=== PATIENT | male | born 1995 ===

== ENCOUNTER 2018-03-07 17:03 | Emergency (ER) | payer SELFPAY ==
--- NOTE | 2018-03-07 17:09 | UC ---
Skin Complaint HPI - HPI Summary HPI Summary: 22 yo male presents with left eyebrow laceration. He is slovak speaking only and is accompanied by a friend who is translating for him. 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 No LOC, but he sustained a laceration/ abrasion to the area. Unsure date of last tetanus or if he has ever had one. - History of Current Complaint Time Seen by Provider: 03/07/18 17:09 Stated Complaint: FACE INJURY Hx Obtained From: Patient Onset/Duration: Sudden Onset Onset Severity: Moderate Current Severity: Moderate Pain Intensity: 5 Pain Scale Used: 0-10 Numeric - Allergy/Home Medications Allergies/Adverse Reactions: Allergies Allergy/AdvReac Type Severity Reaction Status Date / Time No Known Allergies Allergy Verified 03/07/18 17:20 Review of Systems All Other Systems Reviewed And Are Negative: Yes Constitutional: Positive: Negative Skin: Positive: Other - Laceration left eyebrow Eyes: Positive: Negative Respiratory: Positive: Negative Cardiovascular: Positive: Negative Neurovascular: Positive: Negative Neurological: Positive: Negative Psychological: Positive: Negative PMH/Surg Hx/FS Hx/Imm Hx - Additional Past Medical History Additional PMH: None - Surgical History Surgical History: None - Family History Known Family History: Positive: None - Social History Occupation: Employed Full-time Lives: With Family Alcohol Use: Occasionally Substance Use Type: None Smoking Status (MU): Never Smoked Tobacco Physical Exam - Summary Physical Exam Summary: GENERAL: NAD. WDWN. No pain distress. SKIN: LEFT eyebrow: On the mid to lateral aspect of the eyebrow there is an abrasion partially through the dermis. 6mm in length and 3mm in width, but no gaping. CHEST: No accessory muscle use. Breathing comfortably and in no distress. CV: Pulses intact. Cap refill <2seconds NEURO: Alert. PSYCH: Age appropriate behavior. Triage Information Reviewed: Yes Vital Signs: Vital Signs: Temp Pulse Resp BP Pulse Ox 98.3 F 65 16 112/62 100 03/07/18 17:11 03/07/18 17:11 03/07/18 17:11 03/07/18 17:11 03/07/18 17:11 Vital Signs Reviewed: Yes Course/Dx - Course Course Of Treatment: Wound unable to be approximated as this is more of an abrasion than a laceration. Wound was cleansed with 100mL NS. tdap updated today and wound dressed with nonstick telfa and triple antibiotic ointment. Advised to keep area clean and change dressing daily until well healed. - Diagnoses Provider Diagnoses: Left eyebrow abrasion Discharge - Sign-Out/Discharge Documenting (check all that apply): Patient Departure All imaging exams completed and their final reports reviewed: No Studies - Discharge Plan Condition: Stable Disposition: HOME Prescriptions: Cephalexin CAP* [Keflex CAP*] 500 mg PO BID #10 cap Patient Education Materials: Abrasion (ED) Print Language: LAO Referrals: No Primary Care Phys,NOPCP [Primary Care Provider] - Additional Instructions: If you develop a fever, shortness of breath, chest pain, new or worsening symptoms - please call your PCP or go to the ED. 1) Change the dressing daily until well healed (Approximately 7-10 days) - Billing Disposition and Condition Condition: STABLE Disposition: Home - Attestation Statements Provider Attestation: Per institutional requirements, I have reviewed the chart, however, I was not consulted specifically or made aware of this patient by the midlevel provider. I did not personally evaluate, interact with , or disposition this patient.
[2018-03-07] MEDS ORDERED: Tetan/Diph/Pertus SYR(Tdap)* 0.5 ML SYR(BOOSTRIX) use SYR IM ONE (17:25)
== END 2018-03-07 17:36 | disposition home or self-care (01) ==
LOC: UCEAST 17:03
DX: S00.212A Abrasion of left eyelid and periocular area, initial encounter (principal); W55.22XA Struck by cow, initial encounter; Y92.9 Unspecified place or not applicable
CPT/HCPCS: 90471; 90715; 99202; G0463